=== PATIENT | male | born 1970 | race Caucasian/White ===

== ENCOUNTER → 2020-12-03 | Outpatient (CLI) | payer BC ==
--- NOTE | 2020-12-03 19:40 | CONS ---
CONSULTATION REASON FOR CONSULTATION: Sleep apnea. This patient is 50 and he is coming in for loud snoring, witnessed apneas, chronic hypersomnia and sleepiness. He has been told by his that he pauses breathing on multiple occasions in the middle of the night. He is currently living in [place] and he works in [place]. He drives back and forth and he has an hour's drive in each direction. Sometimes he struggles and he gets very sleepy, to the point where he is concerned that he is going to fall asleep while driving. He drinks a couple of cups of coffee in the morning to keep himself stimulated. He goes to bed around 8 p.m., wakes up at 4 a.m. in the morning, and despite that he is feeling sleepy and tired. He wakes up occasionally in the middle of the night to urinate. He wakes up with a dry mouth. He has been told that he pauses or stops breathing in the middle of the night. No angina. No palpitations. No anxiety. No depression. No head trauma. No substance abuse. No recent weight gain or weight loss. His current Villas score is 16. No sleep paralysis. No hallucinations. No cataplexy. PAST MEDICAL HISTORY: Hypertension, hyperlipidemia. PAST SURGICAL HISTORY: Past surgical history includes rotator cuff surgery and tennis elbow surgery. DRUG ALLERGIES: NOT KNOWN. OUTPATIENT MEDICATION: Outpatient medication includes Lipitor, omeprazole, lisinopril, metoprolol and Peck. SOCIAL HISTORY: Nonsmoker. No history of alcoholism. No history of IV drugs. FAMILY HISTORY: Negative for sleep apnea. REVIEW OF SYSTEMS: Fourteen-point review of systems was done. Positive findings are all mentioned above in the history of present illness. Of significance is the increased tiredness and sleepiness during the day. No heartburn. No palpitations. No panic attacks. No restlessness in the lower extremities. No sleepwalking. No sleeptalking. No dreaming. No nightmares. PHYSICAL EXAMINATION: VITAL SIGNS: BP is 115/68, pulse 73, respirations 20, temperature 97.3, saturation 97% on room air. Height is 5 feet 8 inches. Weight is 180. BMI is 27.3. Villas score is 16. Neck size is 16 inches. GENERAL APPEARANCE: Calm, comfortable. HEAD: Atraumatic, normocephalic. NECK: Supple. No JVD. No goiter or neck masses. Slight overbite with a Mallampati class IV. LUNGS: Clear to auscultation. HEART: Heart sounds are regular rate and rhythm. Normal S1, S2. No S3, S4. No murmurs. ABDOMEN: Soft, nontender. No organomegaly. EXTREMITIES: No edema. No cyanosis or clubbing. IMPRESSION: 1. Hypersomnia. Villas score of 16, highly suspicious for obstructive sleep apnea based on history of snoring, witnessed apneas. 2. Hypertension. 3. Hyperlipidemia. PLAN: 1. Clinical suspicion for sleep apnea is quite high in this patient. We will proceed with a home sleep study and if positive will offer the patient an APAP unit. 2. Encourage weight loss. 3. Implement good sleep hygiene measures. 4. Do not drive, especially when feeling drowsy or sleepy. 5. Caffeine for stimulation until further treatment. 6. Will continue to follow. MMMIKOL / IJN: [id number] /
== END ==
LOC: SLEEP 16:05
PROVIDERS: ATTEND Internal Medicine Critical Care Medicine
DX: G47.10 Hypersomnia, unspecified (principal); E78.5 Hyperlipidemia, unspecified; I10 Essential (primary) hypertension